=== PATIENT | female | born 1990 | race Caucasian/White ===

== ENCOUNTER 2017-02-25 11:53 | Emergency (ER) | payer SELFPAY ==
[~2017-02-25] VITALS: Ht 157.5 cm; Wt 71.8 kg
[~2017-02-25 11:53] MED LIST: MOTRIN800 MG PO; NOHOMEMEDS
[2017-02-25] MEDS ORDERED: TYLENOL WITH C1 EACH PO (13:47)
[2017-02-25] MEDS ORDERED: PEN-VEE K,VEET500 MG PO (13:47)
[2017-02-25 13:56] VITALS: BP 117/66
== END 2017-02-25 14:02 | disposition home or self-care (01) ==
LOC: EME 11:53
DX: K04.7 Periapical abscess without sinus (principal); K03.81 Cracked tooth; F17.200 Nicotine dependence, unspecified, uncomplicated
CPT/HCPCS: 99281; 99284